=== PATIENT | female | born 2000 | race Caucasian/White ===

== ENCOUNTER 2022-09-07 16:44 | Emergency (ER) | payer OTHER, SELFPAY ==
[2022-09-07 16:54] VITALS: BP 133/69; PULSE 99; RESP 14; TEMP 37; O2SAT 99
[2022-09-07 16:59] VITALS: BP 133/69; PULSE 99; RESP 14; TEMP 37; O2SAT 99
--- NOTE | 2022-09-07 17:15 | ED.GENADULT ---
HPI - General Adult General Chief complaint: Ear Stated complaint: Right Ear Pain Source: patient Mode of arrival: ambulatory Limitations: no limitations History of Present Illness HPI narrative: Patient presents for evaluation of right ear pain for last 4 days. She states symptoms started after she stuck a Q-tip in her right ear. She developed a sensation that she has fluid in her ear. She denies confirmation of any drainage from the right ear. She states she has intermittent muffled hearing on right. Has any fever, chills, nausea, vomiting, sore throat, respiratory symptoms. She has been taking Tylenol and ibuprofen for symptoms. Related Data Allergies Allergy/AdvReac Type Severity Reaction Status Date / Time No Known Allergies Allergy Verified 09/07/22 16:59 Review of Systems Review of Systems: CONSTITUTIONAL: Denies fever, chills, or sweats. EYES: Denies visual changes, redness, or discharge. ENT: Reports right ear pain, sensation of fluid in the ear, and intermittent muffled hearing CARDIOVASCULAR: Denies chest pain, palpitations, or edema. RESPIRATORY: Denies cough or dyspnea. GASTROINTESTINAL: Denies abdominal pain, nausea, vomiting, or diarrhea. GENITOURINARY: Denies dysuria or hematuria. SKIN: Denies rash or itching. MUSCULOSKELETAL: Denies back pain, joint pain, or myalgia. NEUROLOGIC: Denies headache, numbness, dizziness, or weakness. PSYCHIATRIC: Denies anxiety or depression. [facility] Past Medical History Medical History (Updated 09/07/22 @ 17:17 by Joel Jimenez, GAS CONTRO[employer], ) No pertinent past medical history Surgical History Surgical History No pertinent past surgical history Family History Family History Mother Family history non-contributory Social History Social History Smoking status: Never smoker Substance use: current Substance use type: marijuana Gender identity (if verbalized by the patient): Female Sexual Orientation (if Verbalized by the Patient): Straight or Heterosexual Spiritual care concerns: No Exam Narrative: GENERAL: Well-appearing, well-nourished, and in no acute distress. HEAD: Normocephalic, atraumatic. EYES: PERRLA and EOMI. ENT: Nares clear, no rhinorrhea or epistaxis. Mucous membranes moist. Oropharynx without tonsillar hypertrophy exudate or other lesions. There is white exudate in the right ear canal which is edematous. I am unable to visualize right TM NECK: Supple. No adenopathy or masses. No carotid bruits or JVD CHEST: Clear to auscultation. No respiratory distress. No wheezes rales or rhonchi HEART: Regular rate and rhythm. No murmur heard. Normal peripheral pulses. ABDOMEN: Soft, nontender, nondistended, normal active bowel sounds. EXTREMITIES: Normal range of motion. No edema. SKIN: Warm, dry, no rash. NEURO: No focal deficits. Alert and oriented x3. PSYCH: Normal mood and affect. Course Course Emergency Course: This is a 22-year-old female who presented for evaluation of right ear pain for last 4 days. She does have evidence of otitis externa. I am not sure she has perforated her tympanic membrane as I am unable to visualize 2/2 swelling. I did irrigate with H202 and water. Will also cover with augmentin. Follow up with ENT. Go to ER for worsening symptoms. Pt in agreement with plan of care. Level of Care: Express Care Visit Vital Signs Vital signs: Vital Signs Temperature 37.0 C 09/07/22 16:54 Pulse Rate 99 09/07/22 16:54 Respiratory Rate 14 09/07/22 16:54 Blood Pressure 133/69 09/07/22 16:54 Pulse Oximetry 99 09/07/22 16:54 Oxygen Delivery Room Air 09/07/22 16:54 Temperature 37.0 C 09/07/22 16:59 Pulse Rate 99 09/07/22 16:59 Respiratory Rate 14 09/07/22 16:59 Blood Pressure 133/69 09/07/22 16:59 Pulse Oximetry 9
== END 2022-09-07 17:16 | disposition home or self-care (01) ==
PROVIDERS: Emergency Provider Nurse Practitioner
DX: S09.91XA Unspecified injury of ear, initial encounter (principal); X58.XXXA Exposure to other specified factors, initial encounter
CPT/HCPCS: 99213; G0463

== ENCOUNTER 2023-03-01 15:23 | Emergency (ER) | payer OTHER, SELFPAY ==
[2023-03-01 15:35] VITALS: BP 119/71; PULSE 96; RESP 20; TEMP 36.7; O2SAT 97
--- NOTE | 2023-03-01 16:09 | ED.GENADULT ---
HPI - General Adult General Chief complaint: Urogenital-Female Stated complaint: Poss UTI Source: patient Mode of arrival: ambulatory Limitations: no limitations History of Present Illness HPI narrative: Patient presents for evaluation of urinary symptoms for last few days. Symptoms include urine hesitancy, urgency, frequency, incomplete emptying, and discomfort at the end of urinary stream. She denies any fever chills, nausea, vomiting, low back pain, abdominal pain. Last menstrual period now. No vaginal discharge. Related Data Allergies Allergy/AdvReac Type Severity Reaction Status Date / Time No Known Allergies Allergy Verified 03/01/23 15:49 Review of Systems Review of Systems: CONSTITUTIONAL: Denies fever, chills, or sweats. EYES: Denies visual changes, redness, or discharge. ENT: Denies rhinorrhea, congestion, sore throat, or otalgia. CARDIOVASCULAR: Denies chest pain, palpitations, or edema. RESPIRATORY: Denies cough or dyspnea. GASTROINTESTINAL: Denies abdominal pain, nausea, vomiting, or diarrhea. GENITOURINARY:Reports urinary frequency, urgency, hesitancy, incomplete emptying, discomfort at the end of urinary stream. Denies vaginal discharge SKIN: Denies rash or itching. MUSCULOSKELETAL: Denies back pain, joint pain, or myalgia. NEUROLOGIC: Denies headache, numbness, dizziness, or weakness. PSYCHIATRIC: Denies anxiety or depression. PMFSH Past Medical History Medical History No pertinent past medical history Surgical History Surgical History No pertinent past surgical history Family History Family History Mother Family history non-contributory Social History Social History Smoking status: Never smoker Substance use: current Substance use type: marijuana Gender identity (if verbalized by the patient): Female Sexual Orientation (if Verbalized by the Patient): Straight or Heterosexual Spiritual care concerns: No Exam Narrative: GENERAL: Well-appearing, well-nourished, and in no acute distress. HEAD: Normocephalic, atraumatic. EYES: PERRLA and EOMI. ENT: Nares clear, no rhinorrhea or epistaxis. Mucous membranes moist. Oropharynx without tonsillar hypertrophy exudate or other lesions. Bilateral TMs pearly rocha nonbulging NECK: Supple. No adenopathy or masses. No carotid bruits or JVD CHEST: Clear to auscultation. No respiratory distress. No wheezes rales or rhonchi HEART: Regular rate and rhythm. No murmur heard. Normal peripheral pulses. ABDOMEN: Soft, nontender, nondistended, normal active bowel sounds. EXTREMITIES: Normal range of motion. No edema. SKIN: Warm, dry, no rash. NEURO: No focal deficits. Alert and oriented x3. PSYCH: Normal mood and affect. Course Course Emergency Course: This is a 22-year-old female who presented for evaluation of urinary symptoms. Urine today positive for leukocyte esterase. Send urine for culture and sensitivity. Start Macrobid. Increase hydration. Declined script for Pyridium. Follow up with primary provider. Go to the ER for worsening symptoms. Patient in agreement plan of care. Level of Care: Express Care Visit Vital Signs Vital signs: Vital Signs Temperature 36.7 C 03/01/23 15:35 Pulse Rate 96 03/01/23 15:35 Respiratory Rate 20 03/01/23 15:35 Blood Pressure 119/71 03/01/23 15:35 Pulse Oximetry 97 03/01/23 15:35 Oxygen Delivery Room Air 03/01/23 15:35 Temperature 36.7 C 03/01/23 15:35 Pulse Rate 96 03/01/23 15:35 Respiratory Rate 20 03/01/23 15:35 Blood Pressure 119/71 03/01/23 15:35 Pulse Oximetry 97 03/01/23 15:35 Oxygen Delivery Room Air 03/01/23 15:35 Medical Decision Making Vital Signs Vital Signs: Vital Signs Temperatur
== END 2023-03-01 16:15 | disposition home or self-care (01) ==
PROVIDERS: Emergency Provider Nurse Practitioner
DX: N39.0 Urinary tract infection, site not specified (principal)
CPT/HCPCS: 81003; 87077; 87086; 87186; 99213; G0463

== ENCOUNTER 2024-02-09 15:35 | Emergency (ER) | payer OTHER, SELFPAY ==
[2024-02-09 16:08] VITALS: BP 138/80; PULSE 104; RESP 18; TEMP 36.8; O2SAT 100
--- NOTE | 2024-02-09 17:17 | ED.FEMALEGU ---
HPI - Female Genitourinary General Chief complaint: Urogenital-Female Stated complaint: UTI Time Seen by Provider: 02/09/24 17:00 Source: patient, RN notes reviewed and old records reviewed Mode of arrival: ambulatory Limitations: no limitations History of Present Illness HPI Narrative: 23 year old female presents to [facility] care with complaints of burning with urination yesterday none today but is having soreness in the lower abdomen, and lower back, frequency and urgency with urination today. Patient reports that she also has no fevers, chills or any sweats, denies any nausea or vomiting. Patient reports no concern for STD's. MD elicited complaint: UTI Onset (ago): day(s) (day 2 of symptoms) Location of symptoms: suprapubic and low back Severity scale (1-10): 5 Quality of pain: aching Vaginal discharge: none Vaginal bleeding: none Treatment prior to arrival: none Related Data Allergies Allergy/AdvReac Type Severity Reaction Status Date / Time No Known Allergies Allergy Verified 03/01/23 15:49 Review of Systems Review of Systems: CONSTITUTIONAL: Denies fever, chills, or sweats. CARDIOVASCULAR: Denies chest pain, palpitations, or edema. RESPIRATORY: Denies cough or dyspnea. GASTROINTESTINAL:Reports suprapubic abdominal pain, nausea, vomiting, or diarrhea. GENITOURINARY: Reports dysuria, frequency, urgency. Denies flank pain or hematuria. SKIN: Denies rash or itching. MUSCULOSKELETAL: Reports low back pain or myalgia. Denies CVA tenderness NEUROLOGIC: Denies headache All systems reviewed & are unremarkable except as noted in HPI and below PMFSH Past Medical History Medical History No pertinent past medical history Surgical History Surgical History No pertinent past surgical history Family History Family History Mother Family history non-contributory Social History Social History Smoking status: Never smoker Substance use: current Substance use type: marijuana Gender identity (if verbalized by the patient): Female Sexual Orientation (if Verbalized by the Patient): Straight or Heterosexual Spiritual care concerns: No Comments At time of signature, agree with nursing past medical, surgical, social and family history. There is no relevant family history pertinent to the presenting complaint Exam Narrative: GENERAL: Well-appearing, well-nourished, and in no acute distress. HEAD: Normocephalic, atraumatic. NECK: Supple. no lymphadenopathy CHEST: Clear to auscultation. No respiratory distress.SAO2 100% on room air HEART: Regular rate and rhythm. No murmur heard. Normal peripheral pulses. ABDOMEN: Soft, suprapubic tender, nondistended, normal active bowel sounds. No CVA tenderness, reports low back pain, frequency,urgency with urination reported. EXTREMITIES: Normal range of motion. No edema. SKIN: Warm, dry, no rash. NEURO: No focal deficits. Alert and oriented x3. Course Course Emergency Course: Patient is aware of diagnosis, understands and agrees to treatment plan.? Anticipatory guidance given.? Patient agrees to follow-up as directed and is aware of reasons to seek care at the emergency department. Portions of this record may have been created with voice recognition software Level of Care: Express Care Visit Vital Signs Vital signs: Vital Signs Temperature 36.8 C 02/09/24 16:08 Pulse Rate 104 H 02/09/24 16:08 Respiratory Rate 18 02/09/24 16:08 Blood Pressure 138/80 02/09/24 16:08 Pulse Oximetry 100 02/09/24 16:08 Oxygen Delivery Room Air 02/09/24 16:08 Temperature 36.8 C 02/09/24 16:08 Pulse Rate 104 H 02/09/24 16:08 Respiratory Rate 18 02/09/24 16:08 Blood Pressure 138/80 02/09/24 16:08 Pulse Oximetry 100 02/09/24 16:
[2024-02-09 17:32] LABS: EDUAAPPEAR Clear; EDUABILI Negative (Negative); EDUABLOOD Negative (Negative); EDUACOLOR1 Yellow; EDUAGLUCOSE Negative (Negative); EDUAKETONE Negative (Negative); EDUALEUKO Negative (Negative); EDUANITRATE Negative (Negative); EDUAPH 8.5; EDUAPROTEIN 1+ (Negative); EDUASPGRAVITY 1.025
== END 2024-02-09 17:49 | disposition home or self-care (01) ==
PROVIDERS: Emergency Provider Registered Nurse
DX: R35.0 Frequency of micturition (principal); R10.30 Lower abdominal pain, unspecified; M54.50 Low back pain, unspecified; R39.15 Urgency of urination; F12.90 Cannabis use, unspecified, uncomplicated
CPT/HCPCS: 81003; 87086; 87088; 99213; G0463

== ENCOUNTER 2024-08-24 16:07 | Emergency (ER) | payer OTHER, SELFPAY ==
[2024-08-24 16:14] VITALS: BP 132/80; PULSE 120; RESP 16; TEMP 37.1; O2SAT 98
--- NOTE | 2024-08-24 16:30 | ED.FEMALEGU ---
HPI - Female Genitourinary General Chief complaint: Urogenital-Female Stated complaint: urinary irritation Source: patient and RN notes reviewed Mode of arrival: ambulatory Limitations: no limitations History of Present Illness HPI Narrative: 23-year-old female presented for complaint of burning with urination, frequency and incomplete bladder emptying sensation. Onset yesterday. Endorses blood in urine today. Denies nausea, vomiting, abdominal pain, flank pain, constipation, diarrhea, fevers or chills. Denies concerns STD or . LMP last week. Related Data Home Medications ?Medication ?Instructions ?Recorded ?Confirmed ?Last Taken ?Type drospirenone 3 mg-ethinyl tablet 08/24/24 Unknown History estradiol 0.02 mg tablet Allergies Allergy/AdvReac Type Severity Reaction Status Date / Time No Known Allergies Allergy Verified 08/24/24 16:09 Review of Systems Review of Systems: CONSTITUTIONAL: Denies body aches, fever, chills, or sweats. CARDIOVASCULAR: Denies chest pain, palpitations, or edema. RESPIRATORY: Denies cough or dyspnea. GASTROINTESTINAL: Denies abdominal pain, nausea, vomiting, or diarrhea. GENITOURINARY: Reports dysuria, frequency, hematuria, denies flank pain SKIN: Denies rash, itching, or wounds. MUSCULOSKELETAL: Denies back pain or myalgia. [facility] Past Medical History Medical History No pertinent past medical history Surgical History Surgical History No pertinent past surgical history Family History Family History Mother Family history non-contributory Social History Social History Smoking status: Never smoker Substance use: current Substance use type: marijuana Gender identity (if verbalized by the patient): Female Sexual Orientation (if Verbalized by the Patient): Straight or Heterosexual Spiritual care concerns: No Comments At time of signature, I have reviewed and agree with nursing past medical, surgical, social and family history unless otherwise noted. Please see nursing chart for further information. There is no relevant family history pertinent to the presenting complaint Exam Narrative: GENERAL: Well-appearing and in no acute distress. ENT: Mucous membranes pink and moist. NECK: Normal AROM. Supple. CHEST: No respiratory distress. Clear to auscultation. HEART: Regular rate and rhythm. ABDOMEN: Soft, nontender, nondistended, normal active bowel sounds. No CVA tenderness SKIN: Warm, dry, no rash. NEURO: No focal deficits. Alert and oriented x3. Gait steady. PSYCH: Normal affect. Course Course Emergency Course: Patient is aware of diagnosis, understands and agrees to treatment plan. Anticipatory guidance given. Patient agrees to follow-up as directed and is aware of reasons to seek care at the emergency department. Portions of this record may have been created with voice recognition software Level of Care: Express Care Visit Vital Signs Vital signs: Vital Signs Temperature 98.8 F 08/24/24 16:14 Pulse Rate 120 H 08/24/24 16:14 Respiratory Rate 16 08/24/24 16:14 Blood Pressure 132/80 08/24/24 16:14 Pulse Oximetry 98 08/24/24 16:14 Oxygen Delivery Room Air 08/24/24 16:14 Temperature 98.8 F 08/24/24 16:14 Pulse Rate 120 H 08/24/24 16:14 Respiratory Rate 16 08/24/24 16:14 Blood Pressure 132/80 08/24/24 16:14 Pulse Oximetry 98 08/24/24 16:14 Oxygen Delivery Room Air 08/24/24 16:14 Reviewed MDM - Female Genitourinary MDM Narrative Medical decision making narrative: Discussed physical exam findings and urine dip. Advised supportive measures and signs/symptoms to go to the ER. Pt is appropriate for outpt treatment and f/u. Differential Diagnosis Differential diagnosis: Likely urinary tract infection and cystitis Discharge Plan Discharge Clinical Impression: Urinary tract infection Patient Disposition: Home, Self-Care Condition: Stable Instructions: Antibiotic Form, Urinary Tract Infection in Women (ED) Additional Instructions: Take the antibiotic as prescribed The urine will be sent of for a culture to identify what type of bacteria is causing your infection. If the culture shows that the antibiotic will not get rid of your infection, you will be notified and a new antibiotic will be called in for you. Increase water intake you will need to follow up with your PCP, call to schedule an appointment. Go to the ER for any worsening symptoms or concerns Patient Language: Beninese Prescriptions: New nitrofurantoin monohyd/m-cryst [Macrobid] 100 mg capsule 100 mg PO Q12H 5 Days Qty: 10 0RF Rx Instructions: must administer with a meal/food No Action drospirenone-ethinyl estradiol 3-0.02 mg tablet Follow-up/Referrals: PHYSICIAN,BED LASTER [Primary Care Provider] - Time of Disposition: 16:36
[2024-08-24 16:43] LABS: EDUAAPPEAR Clear; EDUABILI Negative (Negative); EDUABLOOD 1+ (Negative); EDUACOLOR1 Yellow; EDUAGLUCOSE Negative (Negative); EDUAKETONE Negative (Negative); EDUALEUKO 1+ (Negative); EDUANITRATE Negative (Negative); EDUAPH 6.5; EDUAPROTEIN Negative (Negative); EDUAUROBILI 0.2
--- OUTSIDE RECORDS SUMMARY | 2024-08-24 16:43 | XMS_ITS | Referral Summary ---
Author Organization [facility] [address] Address [address] [place] [address] Phone Care Team Providers Care Ceramic Artist Name Role Phone Prema George MD Primary Care Provider [phone] Allergies No known active allergies Medications ciprofloxacin (CIPRO) 500 mg tabletIndication s:Urinary Tract/Genitourin elsa Infection Take 1 tablet (500 mg total) by mouth 2 (two) times a day 14 tablet 01/26/2023 Active Active Problems Problem Noted Date Diagnosed Date Lipoma 07/22/2016 Overview (04/13/2017): 07-22-16 R lower rib cage #10, 2 cm Ingrown toenail 07/22/2016 Overview (04/13/2017): Bilateral; reports seeing Podiatry 07-22-16 Anxiety 07/22/2016 Overview (04/13/2017): 17 reports anxiety attacks for years - urged to call [facility] 01/23/2015 Overview (04/13/2017): Health care maintenance 02/28/2014 Overview (04/13/2017): Overweight 02/28/2014 Overview (04/13/2017): Resolved Problems Problem Noted Date Diagnosed Date Resolved Date Otitis media 04/30/2015 04/13/2017 Overview (08/29/2016): Otitis media Excessive shyness 02/28/2014 04/13/2017 Overview (04/13/2017): Immunizations Immunization Administration Dates Next Due DTaP 02/17/2005,03/09/2001,01/08/2001 ,2000 DTaP / HiB 12/08/2001 HPV, Quadrivalent 01/23/2015 HPV9 01/19/2018 Hep B / HiB 03/09/2001 Hep B, Adolescent or Pediatric 2000,2000 Hib (PRP-T) 01/08/2001,2000 IPV 02/17/2005,12/08/2001,01/08/2001 ,2000 MMR 02/17/2005,09/08/2001 Meningococcal MCV4P (Menactra) 01/19/2018,2011 Pneumococcal Conjugate 7-Valent 12/08/2001,03/23,01/08/2001,2000 Tdap 01/12/2012 Varicella 01/23/2015,09/08/2001 Social History Tobacco Use Types Packs/Day Years Used Date Smoking Tobacco: Never Assessed Personal Safety Answer Date Recorded Have you ever been in or are you currently in a harmful physical or emotional relationship or is someone making you feel afraid or unsafe? 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 ID Care Teams Ceramic Artist Relationship Specialty Start Date End Date Prema George MD [address] [place] [address] PCP - General 08/22/16
--- OUTSIDE RECORDS SUMMARY | 2024-08-24 16:43 | XMS_ITS | Clinical Summary ---
Author Organization [facility] [address] Address [address] [place] [address] Phone Care Team Providers Care Acid Crane Operator Name Role Phone Prema George MD Primary Care Provider [phone] Allergies No known active allergies Medications ciprofloxacin [...] attacks for years - urged to call [facility] 01/23/2015 Overview (04/13/2017): Health care maintenance 02/28/2014 [...] Conjugate 7-Valent 12/08/2001,03/23,01/08/2001,2000 Tdap 01/12/2012 Varicella 01/23/2015,09/08/2001 Medical History Medical History Date Comments 2000 6-6 product nl p reg O+/O+ Family History Medical History Relation Name Comments Hyperlipidemia Other 1 Diabetes Other 2 Sudden Other 3 Age 46 [place] Asthma Sister 1/2 sister Relation Name Status Comments Other 1 Other 2 Other 3 Sister 1/2 sister Social History Tobacco Use Types Packs/Day Years [...] on file Legal Sex Female 3:11 PM [employer] Gender Identity Not on file Sexual Orientation Not on file Obstetrics History Last Filed Vital Signs Vital Sign Reading [...] Mass Index - - Plan of Treatment Health Maintenance Due Date Last Done Comments Cervical Cancer Screening 2000 Depression Screening 2000 Hepatitis C Screening 2000 Meningococcal B Vaccine (1 o f 2 - Standard) 2016 Regular Well Visit/Exam 18-64 2018 DTaP/Tdap/Td Vaccine (7 - Td or Tdap) 01/11/2022 01/12/2012, 02/17/2005, 12/08/2001, Additional history exists Covid-19 Vaccine (2 - 2023-2 5 season) 2024 05/13/2021 Influenza Vaccine (#1) 2024 Hepatitis B Screening Completed 03/09/2001 , 2000, 2000 Pneumococcal vaccine <65 Completed 002, 03/23/2001, 01/08/2001, Additional history exists Varicella Vaccines Completed 01/23/2015, 09/08/2001 HPV Vaccines Completed 01/19/2018, 01/23/[address] [place] [address] [facility] Care Teams Acid Crane Operator Relationship Specialty Start Date End Date Prema George MD [address] [place] [address] PCP - General 08/22/16
--- OUTSIDE RECORDS SUMMARY | 2024-08-24 16:43 | XMS_ITS | Data Portability ---
Author Organization [facility] Address [address] [place] [address] Assessment Encounter Date Assessment Date Assessment LastModified by Organization Details LastModified Time 09/23/2021 09/23/2021 Annual gynecological exam performed. Patient will come back in a year unless there are new symptoms. Not available 09/20/2021 11:52:13 Plan of Treatment Reminders Order Date Submit Date Provider Last Modified By Organization Details Last Modified Time Details Appointments None recorded . Lab hbcab (hepatit is B core Ab) igm, serum 2022 023 [facility] (Lab), [address], [place], [address], 21:46:09 HBsAg (hepatit is B surface Ag), serum 2022 023 [facility] (Lab), [address], [place], [address], 21:46:07 hepatiti s C virus Ab, serum 2022 023 [facility] (Lab), [address], [place], [address], 3 21:46:08 unlisted lab - HIV 1/2 antigen/ antibody , reflex confirma tion 2022 023 [facility] (Lab), [address], [place], [address], 21:46:08 RPR (rapid plasma reagin), serum 2022 023 [facility] (Lab), [address], [place], [address], 3 21:46:09 urinalys is, dipstick 2022 023 [place], [address], [address], [place], [address], 12:44:11 CBC w/ auto diff 2022 023 [facility] (Lab), [address], [place], [address], 3 10:38:56 TSH, serum or plasma 2022 023 [facility] (Lab), [address], [place], [address], 3 10:38:58 CMP, serum or plasma 2022 023 [facility] (Lab), [address], [place], [address], 3 10:38:58 HbA1c (hemoglo bin A1c), blood 2022 023 [facility] (Lab), [address], [place], [address], 3 10:38:57 lipid panel, blood 2022 023 [facility] (Lab), [address], [place], [address], 3 10:38:57 Referral None recorded . Procedures None recorded . Surgeries None recorded . Imaging None recorded . Medication Orders penicill in G benzathi ne 2,400,00 0 unit/4 mL intramus cular syringe 2022 023 [facility][id number], [address], [place], [place], [id number], 3 14:20:52 Macrobid 100 mg capsule 2022 023 [facility] #[id number], [address], [place], [place], [id number], 3 14:10:09 fluconaz ole 150 mg tablet 2021 022 [facility] #[id number], [address], [place], [place], [id number], 3 14:10:05 nystatin -triamci nolone 100,000 unit/gra m-0.1 % topical ointment 2021 022 [facility] #[id number], [address], [place], [place], [id number], 2 14:25:40 Patient TargetsNo targets recorded. Patient InstructionsNo instructions recorded. Reason for Referral None Reported. Results Created Date Observation Date Name Description Value Unit Range Abnormal Flag Note LastModifiedBy Organization Detail LastModifiedTime 09/10/19 22 09/09/2021 VAGIN ITIS/ VAGIN OSIS, DNA PROBE aleyda sp. detection, direct probe Negati ve negati ve Not Available [facility] (Lab) [address], [place], [address], 09/10/2021 14:14:19 09/10/19 22 09/09/2021 VAGIN ITIS/ VAGIN OSIS, DNA PROBE gardnerella vag. detection, direct probe Positi ve negati ve abnormal Not Available [facility] (Lab) [address] [place], [address], 09/10/2021 14:14:19 09/10/19 22 09/09/2021 VAGIN ITIS/ VAGIN OSIS, DNA PROBE trichomonas vag. detection, direct probe Negati ve negati ve Not Available [facility] (Lab) [address], [place], [address], 09/10/2021 14:14:19 09/10/19 22 09/09/2021 CT/GC AND TRICH OMONA S VAGIN SOHAN (RRNA ), URINE chlamydia trachomatis, PCR Negati ve negati ve Not Available [facility] (Lab) [address], [place], [address], 09/10/2021 14:14:20 09/10/19 22 09/09/2021 CT/GC AND TRICH OMONA S VAGIN SOHAN (RRNA ), URINE neisseria gonorrhoeae, PCR Negati ve negati ve Not Available [facility] (Lab) [address] [facility] [address], [place], [address], 09/10/2021 14:14:20 09/10/19 22 09/09/2021 CT/GC AND TRICH OMONA S VAGIN SOHAN (RRNA ), URINE trichomonas vaginalis ribosomal RNA (rrna) Negati ve negati ve Not Available [facility] (Lab) [address], [place], [address], 09/10/2021 14:14:20 09/24/19 22 09/23/2021 IMAGE GUIDE D PAP, REFLE X HPV IF ASCUS ONLY image guided Pap, reflex HPV ASCUS only SEE RESULT S BELOW CASE REPOR T: Cytol ogy Gynec ologi tylor Repor t Case: [id number] Autho ricelena g Provi js: Heather Walsh, DAO Colle cted: 09/23 1632 Order ing Locat ion: [place] [facility] Recei ivan: 09/24 0754 First Scree n: Clay Castro, CT Speci men: Scree nikolai Pap - Image d, Cervi x STATE MENT OF ADEQU ACY: Satis facto ry for evalu ation Trans forma tion zone compo nent prese nt FINAL DIAGN OSIS: Negat eliseo for Intra epith elial Lesio n or Temo middleton (NIL) . Elect padminibetzaida reyes cali d by Clay Castro, CT on 022 at 10:19 AM ----- ----- ----- ----- ----- ----- ----- ----- ----- ----- ----- ----- ----- ----- ----- ----- ----- ---- COMME NT: Note: This speci men was revie wed by a Cytot echno logis t and/o r Patho logis t (as indic ated in this repor t) after evalu ation using the Thinp rep Imagi ng Syste m. CLINI TYLOR INFOR MATIO N: Menst rual Statu s: LMP (if appli cable ): Clini tylor Histo ry/Pr eviou s Pap: Type of Neopl elvira (if appli cable ): Signi fican t Clini tylor Findi ngs: Other Histo ry: Hormo susan (if appli cable ): PAP EDUCA COREY L NOTE: The Pap Test is a scree nikolai test with an inher ent false negat eliseo rate. Liqui d-bas ed sampl ing may decre ase, but will not elimi lizz, false negat eliseo resul ts. A negat eliseo resul t does not precl ude the prese nce and/o r devel opmen t of disea se, since the prese nce of abnor mal cells in the sampl e depen ds on the locat ion of the lesio n and sampl ing techn ique. Shade nued regul ar scree nikolai is the best metho d of cance r preve ntion . If repor geraldine cytol ogic findi ng do not corre late with physi tylor and/o r histo rical findi ngs, furth er inves tigat ion is recom jerod d, as clini lydia valentine nted. Not Available [facility] (Lab) [address], [place], [address], 09/30/2021 11:21:26 09/24/19 22 09/23/2021 TRICH OMONA S VAGIN SOHAN (RRNA ) trichomonas vaginalis ribosomal RNA (rrna) Negati ve negati ve Not Available [facility] (Lab) [address] , [place], [address], 09/30/2021 11:21:27 09/24/19 22 09/23/2021 CT/GC (JOSH) , THINP REP VIAL chlamydia trachomatis, PCR Negati ve negati ve Not Available [facility] (Lab) [address] [facility] [address], [place], [address], 09/30/2021 11:21:27 09/24/19 22 09/23/2021 CT/GC (JOSH) , THINP REP VIAL neisseria gonorrhoeae, PCR Negati ve negati ve Not Available [facility] (Lab) [address], [place], [address], 09/30/2021 11:21:27 12/13/19 23 12/12/2022 CBC W/DIF F WBC 12.9 10'3/ uL 3.6-10 .2 high Not Available [facility] (Lab) [address], [place], [address], 12/13/2022 10:38:56 12/13/19 23 12/12/2022 CBC W/DIF F RBC 4.79 10'6/ uL (based on docume nted legal sex) 4.10-5 .30 Not Available [facility] (Lab) [address], [place], [address], 12/13/2022 10:38:56 12/13/19 23 12/12/2022 CBC W/DIF F HGB 13.6 g/dL (based on docume nted legal sex) 11.9-1 5.8 Not Available [facility] (Lab) [address], [place], [address], 12/13/2022 10:38:56 12/13/19 23 12/12/2022 CBC W/DIF F HCT 44.5 % (based on docume nted legal sex) 37.4-4 8.3 Not Available [facility] (Lab) [address], [place], [address], 12/13/2022 10:38:56 12/13/19 23 12/12/2022 CBC W/DIF F MCV 92.9 fL 82.0-9 9.0 Not Available [facility] (Lab) [address], [place], [address], 12/13/2022 10:38:56 12/13/19 23 12/12/2022 CBC W/DIF F MCH 28.4 pg 27.0-3 3.0 Not Available [facility] (Lab) [address], [place], [address], 12/13/2022 10:38:56 12/13/19 23 12/12/2022 CBC W/DIF F MCHC 30.6 g/dL 32.0-3 6.0 low Not Available [facility] (Lab) [address], [place], [address], 12/13/2022 10:38:56 12/13/19 23 12/12/2022 CBC W/DIF F RDW 13.8 % 11.0-1 5.0 Not Available [facility] (Lab) [address], [place], [address], 12/13/2022 10:38:56 12/13/19 23 12/12/2022 CBC W/DIF F plt 374 10'3/ uL 150-45 0 Not Available [facility] (Lab) [address], [place], [address], 12/13/2022 10:38:56 12/13/19 23 12/12/2022 CBC W/DIF F MPV 10.8 fL 9.8-12 .7 Not Available [facility] (Lab) [address], [place], [address], 12/13/2022 10:38:56 12/13/19 23 12/12/2022 CBC W/DIF F NRBC's 0.0 % 0 Not Available [facility] (Lab) [address], [place], [address], 12/13/2022 10:38:56 12/13/19 23 12/12/2022 CBC W/DIF F absolute NRBCs 0.0 10'3/ uL 0 Not Available [facility] (Lab) [address], [place], [address], 12/13/2022 10:38:56 12/13/19 23 12/12/2022 CBC W/DIF F neutrophils 78.3 % 37.0-7 2.0 high Not Available [facility] (Lab) [address], [place], [address], 12/13/2022 10:38:56 12/13/19 23 12/12/2022 CBC W/DIF F lymphocytes 15.2 % 16.0-4 8.0 low Not Available [facility] (Lab) [address], [place], [address], 12/13/2022 10:38:56 12/13/19 23 12/12/2022 CBC W/DIF F monocytes 5.0 % 4.0-14 .0 Not Available [facility] (Lab) [address], [place], [address], 12/13/2022 10:38:56 12/13/19 23 12/12/2022 CBC W/DIF F eosinophils 0.6 % 0.0-9. 0 Not Available [facility] (Lab) [address], [place], [address], 12/13/2022 10:38:56 12/13/19 23 12/12/2022 CBC W/DIF F basophils 0.5 % 0.0-2. 0 Not Available [facility] (Lab) [address], [place], [address], 12/13/2022 10:38:56 12/13/19 23 12/12/2022 CBC W/DIF F immature granulocytes 0.4 % no define d refere nce range Not Available [facility] (Lab) [address] , [place], [address], 12/13/2022 10:38:56 12/13/19 23 12/12/2022 CBC W/DIF F absolute neutrophils 10.1 10'3/ uL 1.1-6. 0 high Not Available [facility] (Lab) [address], [place], [address], 12/13/2022 10:38:56 12/13/19 23 12/12/2022 CBC W/DIF F absolute lymphocytes 2.0 10'3/ uL 0.7-3. 4 Not Available [facility] (Lab) [address], [place], [address], 12/13/2022 10:38:56 12/13/19 23 12/12/2022 CBC W/DIF F absolute monocytes 0.6 10'3/ uL 0.3-1. 0 Not Available [facility] (Lab) [address], [place], [address], 12/13/2022 10:38:56 12/13/19 23 12/12/2022 CBC W/DIF F absolute eosinophils 0.1 10'3/ uL 0.0-0. 6 Not Available [facility] (Lab) [address], [place], [address], 12/13/2022 10:38:56 12/13/19 23 12/12/2022 CBC W/DIF F absolute basophils 0.1 10'3/ uL 0.0-0. 1 Not Available [facility] (Lab) [address], [place], [address], 12/13/2022 10:38:56 12/13/19 23 12/12/2022 CBC W/DIF F absolute immature granulocytes 0.1 10'3/ uL 0.00-0 .10 2022 5:35 AM: P indic ates parti al resul ts on a panel have been relea sed. Addit ional resul ts will follo w. 2022 5:35 AM: This resul t has been final verif ied. No addit ional or gibbs ed resul ts are expec geraldine. Not Available [facility] (Lab) [address] , [place], [address], 12/13/2022 10:38:56 12/13/19 23 12/12/2022 HEMOG LOBIN A1C hemoglobin A1C 5.5 % 0-5.6 The Ameri can Diabe myron Assoc iatio n recom mends that a prima ry goal of thera py shoul d be a HBA1C of < 7% and that physi cians shoul d reeva luate the treat ment regim en in patie nts with HBA1C value s consi stent ly > 8%. <5.7% Kenna l 5.7 - 6.4% Incre ased risk for diabe myron >=6.5 % Diagn ostic of diabe myron <7.0% Goal of thera py >8.0% Actio n sugge sted Not Available [facility] (Lab) [address] , [place], [address], 12/13/2022 10:38:57 12/13/19 23 12/12/2022 LIPID PANEL ,AMA (LDL- CALC) total cholesterol 155 mg/dL 0-199 Not Available [facility] (Lab) [address] [place], [address], 12/13/2022 10:38:57 12/13/19 23 12/12/2022 LIPID PANEL ,AMA (LDL- CALC) triglyceride s 84 mg/dL 0.00-1 50.00 NCEP Refer ence Value s for Trigl yceri suresh: Kenna l: <150 mg/dL Borde rline High: 150 - 199 mg/dL High: 200 - 499 mg/dL Very High: >/= 500 mg/dL Not Available [facility] (Lab) [address] [place], [address], 12/13/2022 10:38:57 12/13/19 23 12/12/2022 LIPID PANEL ,AMA (LDL- CALC) HDL cholesterol 43 mg/dL >40 Not Available [facility] (Lab) [address], [place], [address], 12/13/2022 10:38:57 12/13/19 23 12/12/2022 LIPID PANEL ,AMA (LDL- CALC) LDL cholesterol 95 mg/dL 0-99 Cutof f value s recom jerod d by the Natio nal Stefania stero l Educa tion Progr am: ROCK ABLE: Stefania stero l <200 mg/dL LDL <100 mg/dL BORDE RLINE : Stefania stero l 200-2 39 mg/dL LDL 101-1 59 mg/dL HIGHE R RISK: Stefania stero l >240 mg/dL LDL >160 mg/dL , HDL <40 mg/dL Not Available [facility] (Lab) [address], [place], [address], 12/13/2022 10:38:57 12/13/19 23 12/12/2022 LIPID PANEL ,AMA (LDL- CALC) non-HDL cholesterol 112 mg/dL no refere nce range A reaso nable goal for non-H DL stefania stero l is one that is 30 mg/dL highe r than the LDL stefania stero l goal. Not Available [facility] (Lab) [address], [place], [address], 12/13/2022 10:38:57 12/13/19 23 12/12/2022 LIPID PANEL ,AMA (LDL- CALC) chol/HDL ratio 3.6 . 0.0-5. 0 On September 16, 2022, [facility] labor mars gibbs ed the equat ion for calcu latin g estim ated low-d ensit y lipop rotei n-cho leste rol (LDL- C) from the Flakito casey equat ion to the Tova diaz/Andres crawford equat ion. This new equat ion is only valid for lipid panel s with trigl yceri suresh < 400 mg/dL . Studi es have demon strat ed that this new equat ion will impro ve the accur acy of LDL-C , espec ially in scena carvalho when LDL-C osiel ntrat ions are relat ively low (< 100 mg/dL ), trigl yceri suresh are eleva geraldine, or patie nt is non-f astin g. Refer ences : - Tova diaz, Rogers Molina, Diego Ely , Baldev ruano, Leon Davidson, Leon brooks, Hollis Wilder. Júnior george , and Donnell De Guzman . 2013. Comp ariso n of a Novel Metho d vs the Fried jacinto Equat ion for Estim ating Low-D ensit y Lipop rotei n Stefania stero l Level s from the Stand milton Lipid Profi le. ELIZ: The Journ al of the Ameri can Medic al Assoc iatio n 310 (19): 2060- . - Chele barry V, Rosalinda J, Tayo ar A, Anne M, Yeny e R, Becca barry E, Júnior george RS, Gab SR, Tova diaz SS. Fast ing Versu s Nonfa sting and Low-D ensit y Lipop rotei n Stefania stero l Accur acy. Circu latio n. 2017May 26;137 (1):1 0-19. Not Available [facility] (Lab) [address] , [place], [address], 12/13/2022 10:38:57 12/13/19 23 12/12/2022 CMP(C OMPRE HENSI VE METAB OLIC PANEL ) sodium 138 mmol/ L 133-14 6 Not Available [facility] (Lab) [address], [place], [address], 12/13/2022 10:38:58 12/13/19 23 12/12/2022 CMP(C OMPRE HENSI VE METAB OLIC PANEL ) potassium 4.3 mmol/ L 3.5-5. 1 Not Available [facility] (Lab) [address], [place], [address], 12/13/2022 10:38:58 12/13/19 23 12/12/2022 CMP(C OMPRE HENSI VE METAB OLIC PANEL ) chloride 103 mmol/ L 98-107 Not Available [facility] (Lab) [address], [place], [address], 12/13/2022 10:38:58 12/13/19 23 12/12/2022 CMP(C OMPRE HENSI VE METAB OLIC PANEL ) carbon dioxide 25 mmol/ L 21-31 Not Available [facility] (Lab) [address], [place], [address], 12/13/2022 10:38:58 12/13/19 23 12/12/2022 CMP(C OMPRE HENSI VE METAB OLIC PANEL ) anion gap 10 mmol/ L 4-13 Not Available [facility] (Lab) [address], [place], [address], 12/13/2022 10:38:58 12/13/19 23 12/12/2022 CMP(C OMPRE HENSI VE METAB OLIC PANEL ) blood urea nitrogen 11 mg/dL 7-25 Not Available [facility] (Lab) [address], [place], [address], 12/13/2022 10:38:58 12/13/19 23 12/12/2022 CMP(C OMPRE HENSI VE METAB OLIC PANEL ) creatinine 0.79 mg/dL 0.60-1 .30 Not Available [facility] (Lab) [address], [place], [address], 12/13/2022 10:38:58 12/13/19 23 12/12/2022 CMP(C OMPRE HENSI VE METAB OLIC PANEL ) egfrcr (CKD-epi 2020) >90 mL/mi n/1.7 3_m2 >=60 Not Available [facility] (Lab) [address], [place], [address], 12/13/2022 10:38:58 12/13/19 23 12/12/2022 CMP(C OMPRE HENSI VE METAB OLIC PANEL ) calcium 9.4 mg/dL 8.3-10 .5 Not Available [facility] (Lab) [address] [facility] [address] [facility], [place], [address], 12/13/2022 10:38:58 12/13/19 23 12/12/2022 CMP(C OMPRE HENSI VE METAB OLIC PANEL ) glucose 86 mg/dL 70-100 Not Available [facility] (Lab) [address] [facility] [address], [place], [address], 12/13/2022 10:38:58 12/13/19 23 12/12/2022 CMP(C OMPRE HENSI VE METAB OLIC PANEL ) protein, total 6.9 g/dL 6.4-8. 3 Not Available [facility] (Lab) [address] [facility] [address], [place], [address], 12/13/2022 10:38:58 12/13/19 23 12/12/2022 CMP(C OMPRE HENSI VE METAB OLIC PANEL ) albumin 4.1 g/dL 3.5-5. 0 Not Available [facility] (Lab) [address], [place], [address], 12/13/2022 10:38:58 12/13/19 23 12/12/2022 CMP(C OMPRE HENSI VE METAB OLIC PANEL ) ALT 29 units /L 9-43 Not Available [facility] (Lab) [address], [place], [address], 12/13/2022 10:38:58 12/13/19 23 12/12/2022 CMP(C OMPRE HENSI VE METAB OLIC PANEL ) alkaline phosphatase 68 units /L 34-104 Not Available [facility] (Lab) [address] [facility] [address] [facility], [place], [address], 12/13/2022 10:38:58 12/13/19 23 12/12/2022 CMP(C OMPRE HENSI VE METAB OLIC PANEL ) AST 16 units /L 13-39 Not Available [facility] (Lab) [address] [facility] [address] [facility], [place], [address], 12/13/2022 10:38:58 12/13/19 23 12/12/2022 CMP(C OMPRE HENSI VE METAB OLIC PANEL ) bilirubin, total 0.3 mg/dL 0.2-1. 2 Not Available [facility] (Lab) [address] [facility] [address], [place], [address], 12/13/2022 10:38:58 12/13/19 23 12/12/2022 TSH, REFLE X FREE T4 TSH 1.28 uIU/m L 0.30-5 .33 Not Available [facility] (Lab) [address] [facility] [address], [place], [address], 12/13/2022 10:38:58 12/13/19 23 12/12/2022 URINA LYSIS , WITH MICRO SCOPI C, REFLE X CULTU RE color, urine Brown abnormal Highl y color ed speci mens may inter fere with chemi stry resul ts. Not Available [facility] (Lab) [address], [place], [address], 12/14/2022 14:09:22 12/13/19 23 12/12/2022 URINA LYSIS , WITH MICRO SCOPI C, REFLE X CULTU RE clarity, urine Cloudy abnormal Not Available [facility] (Lab) [address], [place], [address], 12/14/2022 14:09:22 12/13/19 23 12/12/2022 URINA LYSIS , WITH MICRO SCOPI C, REFLE X CULTU RE specific gravity, urine >1.030 . 1.005- 1.035 Not Available [facility] (Lab) [address] [facility], [place], [address], 12/14/2022 14:09:22 12/13/19 23 12/12/2022 URINA LYSIS , WITH MICRO SCOPI C, REFLE X CULTU RE pH, urine 6.0 . 5.0-7. 0 Not Available [facility] (Lab) [address] [facility], [place], [address], 12/14/2022 14:09:22 12/13/19 23 12/12/2022 URINA LYSIS , WITH MICRO SCOPI C, REFLE X CULTU RE protein, UA 100 mg/dL negati ve, 10-20 abnormal Not Available [facility] (Lab) [address] [facility], [place], [address], 12/14/2022 14:09:22 12/13/19 23 12/12/2022 URINA LYSIS , WITH MICRO SCOPI C, REFLE X CULTU RE glucose, urine Normal mg/dL negati ve Not Available [facility] (Lab) [address] [facility], [place], [address], 12/14/2022 14:09:22 12/13/19 23 12/12/2022 URINA LYSIS , WITH MICRO SCOPI C, REFLE X CULTU RE ketones, urine Negati ve mg/dL negati ve Not Available [facility] (Lab) [address] [facility], [place], [address], 12/14/2022 14:09:22 12/13/19 23 12/12/2022 URINA LYSIS , WITH MICRO SCOPI C, REFLE X CULTU RE bilirubin, urine Negati ve negati ve Not Available [facility] (Lab) [address] [facility], [place], [address], 12/14/2022 14:09:22 12/13/19 23 12/12/2022 URINA LYSIS , WITH MICRO SCOPI C, REFLE X CULTU RE blood, urine 3+ negati ve abnormal Not Available [facility] (Lab) [address] [place], [address], 12/14/2022 14:09:22 12/13/19 23 12/12/2022 URINA LYSIS , WITH MICRO SCOPI C, REFLE X CULTU RE nitrite, urine Negati ve negati ve Not Available [facility] (Lab) [address] [facility], [place], [address], 12/14/2022 14:09:22 12/13/19 23 12/12/2022 URINA LYSIS , WITH MICRO SCOPI C, REFLE X CULTU RE leukocyte esterase, urine 500 goran/u L negati ve abnormal Not Available [facility] (Lab) [address] [facility], [place], [address], 12/14/2022 14:09:22 12/13/19 23 12/12/2022 URINA LYSIS , WITH MICRO SCOPI C, REFLE X CULTU RE urobilinogen , urine Normal mg/dL normal Not Available [facility] (Lab) [address] [facility], [place], [address], 12/14/2022 14:09:22 12/13/19 23 12/12/2022 URINA LYSIS , WITH MICRO SCOPI C, REFLE X CULTU RE RBC, urine TNTC /hpf none, 0-2 abnormal Not Available [facility] (Lab) [address] [facility], [place], [address], 12/14/2022 14:09:22 12/13/19 23 12/12/2022 URINA LYSIS , WITH MICRO SCOPI C, REFLE X CULTU RE WBC, urine TNTC /hpf none, 0-5 abnormal Not Available [facility] (Lab) [address] [facility], [place], [address], 12/14/2022 14:09:22 12/13/19 23 12/12/2022 URINA LYSIS , WITH MICRO SCOPI C, REFLE X CULTU RE squamous epithelial cells, urine Modera te /hpf none abnormal Not Available [facility] (Lab) [address] [facility], [place], [address], 12/14/2022 14:09:22 12/13/19 23 12/12/2022 URINA LYSIS , WITH MICRO SCOPI C, REFLE X CULTU RE bacteria, urine None /hpf none Not Available [facility] (Lab) [address] [facility], [place], [address], 12/14/2022 14:09:22 12/13/19 23 12/12/2022 URINA LYSIS , WITH MICRO SCOPI C, REFLE X CULTU RE hyaline cast, urine None /lpf none, 0-2 Not Available [facility] (Lab) [address] [facility], [place], [address], 12/14/2022 14:09:22 12/13/19 23 12/12/2022 URINA LYSIS , WITH MICRO SCOPI C, REFLE X CULTU RE mucus, urine TNTC /hpf none, trace, few abnormal Urine Cultu re to follo w. Not Available [facility] (Lab) [address] [facility], [place], [address], 12/14/2022 14:09:22 12/13/19 23 12/12/2022 CULTU RE: URINE result report SEE RESULT S BELOW Test: Cultu re: Urine Speci men Type: Urine Speci men Date: 2022 2:21 PM Resul t Date: 2022 1:06 PM Resul t Statu s: Final resul t Abnor mal: No Resul ting Lab: [facility] [address] [facility] [address] Tel: CULTU RE ----- ----- ----- --- Cultu re resul t (>=3 organ isms prese nt) indic ates possi ble conta minat ion. Repea t cultu re if sympt oms indic ate. Not Available [facility] (Lab) [address] [facility], [place], [address], 12/14/2022 14:09:23 12/13/19 23 12/12/2022 urina lysis , dipst ick Leukocytes ++ Not Available [place] [address] [place], [address], 12/12/2022 12:43:43 12/13/19 23 12/12/2022 urina lysis , dipst ick Nitrite + Not Available [place] [address], [place], [place], [address], 12/12/2022 12:43:43 12/13/19 23 12/12/2022 urina lysis , dipst ick pH 5 Not Available [facility] [address], [place], [address], 12/12/2022 12:43:43 12/13/19 23 12/12/2022 urina lysis , dipst ick Blood +++ Not Available [facility] [address], [place], [address], 12/12/2022 12:43:43 12/13/19 23 12/12/2022 urina lysis , dipst ick Specific [place] 1.030 Not Available [facility] [address], [place], [address], 12/12/2022 12:43:43 12/13/19 23 12/12/2022 urina lysis , dipst ick Glucose 250 Not Available [facility] [address], [place], [address], 12/12/2022 12:43:43 03/05/2003/05/2023 HEPAT ITIS B SURFA CE ANTIG EN hepatitis B surface antigen Non-re active non-re active This assay was perfo rmed using [employer] ratio n reage nts and test kits. Value s obtai ana with other assay metho ds or kits canno t be used inter gibbs eably . Not Available [facility] (Lab) [address], [place], [address], 03/06/2023 21:46:07 03/05/20 23 03/05/2023 HIV 1/2 ANTIG EN/AN TIBOD Y, REFLE X CONFI RMATI ON HIV antigen/anti body Nonrea ctive nonrea ctive HIV-1 antig en and HIV-1 /HIV- 2 antib odies were not detec geraldine. No labor atory evide nce of HIV infec tion. Not Available [facility] ([facility]) [address] [facility], [place], [address], 03/06/2023 21:46:08 03/05/20 23 03/05/2023 HEPAT ITIS C ANTIB ANU SCREE N, REFLE X TO CONFI RMATI ON hepatitis C antibody Non-re active non-re active Antib odies to HCV Not Detec geraldine, does not exclu de the possi bilit y of expos ure to HCV. Not Available [facility] ([facility]) [address] [facility], [place], [address], 03/06/2023 21:46:08 03/05/20 23 03/05/2023 RPR SCREE N/REF GEOVANNA TITER /FTA RPR screen Nonrea ctive nonrea ctive Not Available [facility] (Lab) [address] [place], [address], 03/06/2023 21:46:08 03/05/20 23 03/05/2023 HEPAT ITIS B CORE, IGM hepatitis B core IgM antibody Negati ve negati ve Not Available [facility] ([facility]) [address] [place], [address], 03/06/2023 21:46:09 Result Notes None recorded. Procedures Surgical History Date Name Laterality Status Provider Name and Address Organization Details Recorded Time 09/23/2021 Date of Last Pap Smear completed Kay Evans [place] - [facility] 12/12/2022 12:42:44 Imaging Results None recorded. Procedure Notes None recorded. Medical Equipment None Reported. Allergies No known drug allergies Medications Name Sig Start Date Stop Date Status Note LastModified by Organization Details LastModified Time doxycycline hyclate 100 mg capsule TAKE 1 CAPSULE BY MOUTH TWICE DAILY 03/05 completed Not Available Not Available Not Available fluconazole 150 mg tablet TAKE 1 TABLET BY MOUTH FOR 1 DAY 03/05 completed Not Available Not Available Not Available metronidazo le 500 mg tablet TAKE 1 TABLET BY MOUTH TWICE DAILY FOR 7 DAYS 03/05 completed Not Available Not Available Not Available ciprofloxac in 500 mg tablet TAKE 1 TABLET BY MOUTH TWICE DAILY 03/05 completed Not Available Not Available Not Available nystatin-tr iamcinolone 100,000 unit/gram-0 .1 % topical ointment APPLY TO THE AFFECTED AREA(S) BY TOPICAL ROUTE 2 TIMES PER DAY for 7 days. Apply to vulva 09/23 completed Not Available Not Available Not Available ofloxacin 0.3 % ear drops INSTILL 10 DROPS TO RIGHT EAR DAILY FOR 7 DAYS 03/05 completed Not Available Not Available Not Available doxycycline hyclate 100 mg tablet Take 1 tablet twice a day by oral route with meals for 14 days. active Not Available Not Available No t Available amoxicillin 875 mg-potassiu m clavulanate 125 mg tablet TAKE 1 TABLET BY MOUTH EVERY 12 HOURS 12/12 completed Not Available Not Available Not Available penicillin G benzathine 2,400,000 unit/4 mL intramuscul ar syringe supervisor wet pour from pharmacy and bring back to clinic for injection - Benzathin e penicilli n G 2.4 million units IM in a single dose 2022 active Not Available Not Available Not Avai lable nitrofurant oin monohydrate /macrocryst als 100 mg capsule TAKE 1 CAPSULE BY MOUTH EVERY 12 HOURS FOR 7 DAYS 03/05 completed Not Available Not Available Not Available drospirenon e 3 mg-ethinyl estradiol 0.02 mg tablet TAKE 1 TABLET BY MOUTH DAILY 03/05 completed Not Available Not Available Not Available Vitals Date Recorded Body height Body mass index (BMI) Body weight Systolic blood pressure Diastolic blood pressure Provider Name and Address Organization Details Last Updated DateTime 09/09/2021 160.66 cm 46.4 kg/m2 765099.6 7 g 122 mm[Hg] 82 mm[Hg] Anyi Tang [facility] 12:26:20 Date Recorded Body height Body mass index (BMI) Body weight Systolic blood pressure Diastolic blood pressure Provider Name and Address Organization Details Last Updated DateTime 09/23/2021 160.66 cm 46.9 kg/m2 007940.7 3 g 139 mm[Hg] 89 mm[Hg] Anyi Tang [facility] 2 14:24:46 Date Recorded Body height Body mass index (BMI) Body weight Systolic blood pressure Diastolic blood pressure Provider Name and Address Organization Details Last Updated DateTime 12/12/2022 160.66 cm 46.4 kg/m2 790947.3 9 g 126 mm[Hg] 83 mm[Hg] Kay Evans [facility] 3 12:42:05 Date Recorded Body height Body mass index (BMI) Body weight Systolic blood pressure Diastolic blood pressure Provider Name and Address Organization Details Last Updated DateTime 03/05/2023 160.66 cm 46.4 kg/m2 492741.3 9 g 120 mm[Hg] 85 mm[Hg] Jenny Ball [facility] 3 14:09:28 Social History Question Answer Notes LastModified by Organizat ion Details LastModified Time Tobacco Smoking Status Never Smoker Anyi Tang [facility], [facility] 09/09/2021 12:27:12 What Is Your Level Of Alcohol Consumption? Occasional Information not available 09/09/2021 Are You Blind Or Do You Have Difficulty Seeing? No Information n ot available 09/09/2021 In The 14 Days Before Symptom Onset, Have You Had Close Contact With A Laboratory-confirm ed COVID-19 While That Case Was Ill? No Information n ot available 12/12/2022 In The 14 Days Before Symptom Onset, Have You Had Close Contact With A Person Who Is Under Investigation For COVID-19 While That Person Was Ill? No Information not available 12/12/2022 Have You Been To An Area Known To Be High Risk For COVID-19? No Information not available 12/12/2022 Are You Deaf Or Do You Have Serious Difficulty Hearing? No Information not available 09/09/2021 What Type Of Diet Are You Following? REGULAR Information n ot available 09/09/2021 Sex: Unknown Functional Status Question Answer Note LastModified by Organizat ion Details LastModified Time Do you have difficulty walking or climbing stairs? No Information not available 09/09/2021 Are you able to walk? YESWOREST Information not available 09/09/2021 Are you able to care for yourself? Yes Information not available 09/09/2021 Do you have difficulty dressing or bathing? No Information not available 09/09/2021 What is your exercise level? None Information not available 09/09/2021 Mental Status None recorded. Family History Nothing Reported. Medical History Condition Response Other N Blood Transfusion N Dermatologic Disorders N Gestational Diabetes N Anxiety Disorder N Autoimmune disease N Arthritis N Polyps N Infertility N Acid Reflux (GERD) N Cancer N Varicosities N Stroke N Neurologic/Epilepsy N Fibromyalgia N Headaches N Kidney Disease N Heart Problems N Kidney or Bladder Problems N Eating Disorder N Art (IVF or FET) N Hepatitis/Liver Disease N No Past Medical History N Urinary Tract Infection N Asthma N Trauma/Violence N Thrombophilias N Allergies (Food, seasonal, environmental ) N Breast Cancer N Drug/Latex Allergies/Reactions N Lung Disease N Defects or Inherited Disease N Breast Problem N Hematologic disorders N Anesthesia Complications N History of STI N Deep Vein Thrombosis N Polycystic ovary syndrome N History of abnormal pap N Endometriosis N High Cholesterol N Thyroid Problems N GI Problems N Anemia N Psychiatric Illness N Ovarian Cancer N Diabetes N Pulmonary (TB, Asthma) N Eczema N Abuse/Domestic Violence N Depression/ depression N Heart Disease N Pre-Eclampsia N Hypertension N Osteoporosis N Gynecological History Statement/Question Response Abnormal Pap N Flow Heavy Date of LMP 03/01/2023 STIs/STDs N HPV Vaccine Y Duration of Flow (days) 5 Current Control Method None Sexually Active? Y Menses Monthly Y Age of first menstrual cycle 11 Date of Last Pap Smear 09/23/2021 Sexual Problems? N Desired Control Method None LMP Definite Obstetrics History GPAL:G 0 P 0 0 0 0 Past Encounters Encounter ID Performer Location Encounter Start Date Encounter Closed Date Diagnosis/Indication Diagnosis SNOMED-CT Code Diagnosis ICD10 Code Diagnosis Note [id number] ABDELRAHMAN Martin [address] [address] 09/09/2021 12:10:56 09/09/2021 13:11:28 Vaginitis 87807782 N76.0 Vulvar irritation /itching x 1-2 weeks. On exam vulvar irritation and discharge suspicious for yeast. No lesions or open areas noted. No signs of infection. LMP 08/22/2021, using condoms for control.Wi ll treat for yeast.Vagi nitis panel sent, Urine STI screening sentRTC for WWE in 2-3 weeks. She is due for her first pap. Will reassess vulva at that time. Time spent with the patient was 25 minutes [id number] ABDELRAHMAN Martin [facility] [address],[place] [address] 09/23/2021 14:19:21 09/23/2021 15:06:17 Gynecologic examination 07872995 Z01.419 Take Calcium with Vitamin D 1200mg daily if not receiving in daily diet. It is strongly advised to have an annual flu shot and up can obtain at most pharmacies . If you have not had a TDap shot in the last 10 years you should obtain one as well. Discussed with patient & provided with informatio n regarding Gardisil vaccine to prevent the 4 strains for HPV that cause cervical cancer if under age 26. Encourage safe sexual practices, to use condoms and limit partners if not already in a monogamous relationsh ip. Do monthly self breast exams. Have mammogram yearly or every other year depending on family history. BRCA testing is now available for patients with strong genetic history of female cancer. If interested contact the office. Engage in daily exercise of low impact aerobic exercise 45-60 minutes 4-5 times weekly. Avoid tobacco and illicit drugs as well as using moderation with alcohol intake less than 1-2 8 oz beverages daily. This lifestyle behavior pattern will lead to less health conditions and longer life span. If BMI greater than 25 weight watchers or dietary consult advised. Patient received above instructio ns, and questions have been answered. If you have any questions please call or respond to this email. Patient was made aware of the patient portal and may obtain a paper copy of today's plan if desired. WWE, no gynecologi c issuesUsin g condoms, does not desire another method of controlFir st pap done todaySTI testing declinedNo family hx of breast or ovarian cancerBP today 139/89, she does not have a PCP. She will check with her insurance and call to establish care with one.RTC in one year for WWE or sooner if needed [id number] [facility] [address] [address] 12/12/2022 12:25:43 12/12/2022 12:55:51 Urinary symptoms 207976892 R39.9 Suspect UTIUrine culture sentMedica tion sent Counseled on medication R/B's, Most common side effects, & use. All questions were answered to patient satisfacti on. Time spent in visit is a total of 15 mins with at least 50% of visit consisting of counseling and review of plan of care. Adult heal th examination 438532031 Z00.00 Requested adult panel to also specifical ly check hgba1c due to glucose of 250 on urine dip.Agreea ble to this plan of care. [id number] Heather Walsh [facility] [address] [address] 03/05/2023 13:58:17 03/05/2023 14:58:55 Exposure to Treponema pallidum 548675162 Z20.2 gc/ct/tric h urine testing sentblood STI panel orderedrec ommended she be treated presumptiv moises for syphilis given recent exposure per CDC guidelines rx sent for pen G, sisal picker at pharmacy and RTC for administra jenn diaz from IC until all partners treated, and its been 10 days since treatment for allsafe sexual practices discussed and encouraged Time spent in visit is a total of 30 mins with at least 50% of visit consisting of counseling and review of plan of care. Venereal d isease screening 310724031 Z11.3 Sexually t ransmitted infectious disease 8919269 A64 Health Concerns Section Related Observation LastModified by Organization Detai ls LastModified Time None Recorded Concern Status LastModified by Organization Details LastModified Time None Recorded Advance Directives Directive None Recorded Payers Encounter Date Sequence Insurance Name Policy Number Policy Jarquin Covered Member ID Jarquin Member ID Guarantor Name 09/09/2021 1 [facility] ON OR AFTER 11/22/20 (MEDICAID REPLACEMENT - HMO) Evelyn Arroyo [id number] Evelyn Arroyo 09/23/2021 1 [facility] ON OR AFTER 11/22/20 (MEDICAID REPLACEMENT - HMO) Evelyn Arroyo [id number] Evelyn Arroyo 12/12/2022 1 [facility] ON OR AFTER 11/22/20 (MEDICAID REPLACEMENT - HMO) Evelyn Arroyo [id number] Evelyn Arroyo 03/05/2023 1 [facility] ON OR AFTER 11/22/20 (MEDICAID REPLACEMENT - HMO) Evelyn Arroyo [id number] Evelyn Arroyo Notes Date Note Type Note Provider Name and Address Organization Details Recorded Time 09/09/2021 text/html Patient noticed vulvar itching/irritation /bump 1-2 weeks ago.Symptoms were worse a week ago, improving now.Still has some itching.Denies any open lesions, vaginal discharge, pain, fevers. ABDELRAHMAN Martin [address], [place], [address], [facility] 09/09/2021 13:05:25 09/23/2021 text/html Annual GYNReport ed bypatient.Menstrua l cycle:Normal menses Urinary symptoms:No hematuria; No incontinence Vulva:No genital lesion Vagina:Normal vaginal discharge Breast:No breast pain; No breast lump; No nipple discharge Current Contraception:Sati sfied with current contraception; Monogamous relationship; Condoms Sexual complaints:No sexual complaints; No pain during intercourse; Normal libido Menopausal Symptoms:No menopausal symptoms; Normal vaginal lubrication Psychological symptoms:No depression; No anxiety; No PMDD Preventive measures:Encourage self breast examination; Encourage regular exercise; Encourage no tobacco use; Encourage regular mammograms starting age 40 ABDELRAHMAN Martin [address], [place], [address], [facility] 09/23/2021 15:04:13 12/12/2022 text/html Here today with symptoms of urinary urgency, frequency, & dysuria. Neg pain of abd/pelvis/flankNe g GI sx'sNeg N/V/F/C/DNeg Vag d/c, odor, irritation, itching ABDELRAHMAN [facility] [address], [place], [address], [facility] 12/12/2022 12:55:24 03/05/2023 text/html 22yopresents for STI testingher partner was diagnosed and treated for syphilis 1 week agoshe denies any symptoms (neg discharge, itching, odors, irritation, or sores/lesions present)neg n/v/fneg flu-like symptomsshe is currently on her periodshe denies any medication allergies ABDELRAHMAN Martin [address], [place], [address], [facility] 03/05/2023 14:47:57 OBGyn Episode No OBEpisode recorded.
--- OUTSIDE RECORDS SUMMARY | 2024-08-24 16:44 | XMS_ITS ---
Author Organization [facility]ly [facility] Address [address] [place] [address] Care Team Providers Care Human Services Manager Name Role Phone Keven Krishna Primary Care Provider REASON FOR VISIT MAR f/u Encounters Encounter Location Date Provider Diagnosis [place] [address] [place] [address] 08/17/2024 Keven Krishna Plan Of Treatment No Information Progress Notes * Evelyn LANEDOB:[birth year] (23 yo F)Acc No.[id number]:08/17/2024 UNLOCKED PROGRESS NOTE Patient: Evelyn GARDNER Provider: CYNTHIA Rose, CONTINUOUS DRIER HELPER, MIXING MACHINE TENDER-C :2000 A ge:23 Y S ex:Female Date:08/17/2024 Phone: Address:[address] [place], [place] [id number] Subjective: * Chief Complaints: * 1 . MAR f/u. * Medical History: Objective: * Vitals: Assessment: Plan: * Treatment: * Care Plan Details* * Electronic signature of Esperanza Krishna APRN, [id number] on 08/24/2024 at 04:43 PM CDT Sign off status: Pending * Provider: Johnny Krishna MSN, CONTINUOUS DRIER HELPER, MIXING MACHINE TENDER-C Date: 0 08/17/2024 Generated for Quentin rodriguez/Ousmane/eTransmitting on: 0 08/24/2024 04:43 PM CDT
--- OUTSIDE RECORDS SUMMARY | 2024-08-24 16:44 | XMS_ITS ---
Author Organization [facility] Address [address] [place] [address] Care Team Providers Care Motel Manager Name Role Phone KhanhjessicaleaSheriflora Primary Care Provider Allergies No Known Allergies Results Component Value Reference Range Notes 12 Panel Urine Drug Screen Reviewed date:08/10/2024 02:18:54 PM Interpretation: Performing Lab: Notes/Report: THC po TESS neg MOP (OPI) neg AMP neg MET neg BAR neg BZO neg MDMA neg MTD neg OXY neg PCP neg BUP neg REASON FOR VISIT mat new, last use 08/08/2024, fentanyl, wants to discuss options Medications Medication SIG (Take, Route, Frequency, Duration) Notes Start Date End Date Status Buprenorphine HCl-Naloxone HCl 4-1 MG 1 film under the tongue and allow to dissolve Sublingual three times per day 08/10/2024 Active Social History Tobacco Use: Social History Observation Description Date Details (start date - stop date) Current some da y smoker 04/25/2024 - NA Tobacco Control (Standard) Question Answer Notes Tobacco use: Current some day smoker When did you start smoking? 04/25/2024 Additional Findings: Tobacco user e-cigarette Problems Problem Type SNOMED Code ICD Code Onset Dates Problem Status W/U Status Risk Notes Problem Mental disorder caused by drug (588507071) Opioid use disorder (F11.99) Active confirmed Problem Tobacco user (518786389) Nicotine dependence, unspecified, uncomplicated (F17.200) Active confirmed Problem Obesity (596354870) Obesity (E66.9) Active confirmed Vital Signs Weight 249 lbs 08/10/2024 BMI 42.74 kg/m2 08/10/2024 Blood pressure systolic 120 mm Hg 08/11/19 25 Blood pressure diastolic 78 mm Hg 03/19/2 025 Heart Rate 108 /min 08/10/2024 Oximetry 98 % 08/10/2024 Respiratory Rate 16 /min 08/10/2024 Height 5 ft 4 in in 08/10/2024 Encounters Encounter Location Date Provider Diagnosis [facility] [address] [facility] [place] [address] 08/10/2024 Keven Krishna Opioid use disorder F11.99 ; Nutritional counseling Z71.3 ; Nicotine dependence, unspecified, uncomplicated F17.200 and Obesity E66.9 Assessments Encounter Date Diagnosis (ICD Code) Assessment Notes Treatment Notes Treatment Clinical Notes Section Notes 08/10/2024 Opioid use disorder (ICD-10 - F11.99) Client will complete home induction. Provided with home induction instruction sheet and encouraged to call office with any questions or concerns. 08/10/2024 Nutritional counseling (ICD-10 - Z71.3) 08/10/2024 Nicotine dependence, unspecified, uncomplicated (ICD-10 - F17.200) 08/10/2024 Obesity (ICD-10 - E66.9) 08/10/2024 Other Discussed medication side effects, adverse effects, risks, benefits, as well as interactions. Encouraged non-use of opioids. Has naloxone. Recommended participation in recovery groups and/or counseling services. May contact office with questions or concerns. Plan Of Treatment Medication Medication Name Sig Start Date Stop Date Notes Buprenorphine HCl-Naloxone H Cl 4-1 MG 1 film under the tongue and allow to dissolve Sublingual three times per day 08/10/2024 Treatment Notes Assessment Notes Opioid use disorder Client will complete home induction. Provided with home induction instruction sheet and encouraged to call office with any questions or concerns. Other Discussed medication side effects, adverse effects, risks, benefits, as well as interactions. Encouraged non-use of opioids. Has naloxone. Recommended participation in recovery groups and/or counseling services. May contact office with questions or concerns. Next Appt Details Follow Up: 1 Week, Reason: M AR f/u Progress Notes * ARIANA EvelynDOB:[birth year] (23 yo F)Acc No.[id number]:08/10/2024 Patient: Evelyn GARDNER Provider: Johnny Krishna, MSN, ARC AND G[employer] WELDER, BOILER FIREMAN-C :2000 A ge:23 Y S ex:Female Date:08/10/2024 Phone: Address:[address] [place] [address] ANA LUISA NAPIER-[id number] Subjective: * Chief Complaints: * M at new, last use 08/08/2024, fentanyl, wants to discuss options * HPI: I nterim History: Emergency room visit N o. Was hospitalized N o. D epression Screening: PHQ-9 L ittle interest or pleasure in doing things?Several days F eeling down, depressed, or hopeless S everal days T rouble falling or staying asleep, or sleeping too much S everal F eeling tired or having little energy S everal P oor appetite or overeating M ore than half the days F eeling bad about yourself or that you are a failure, or have let yourself or your family down S ever T rouble concentrating on things, such as reading the newspaper or watching television S ever M oving or speaking so slowly that other people could have noticed; or the opposite, being so fidgety or restless that you have been moving around a lot more than usual S ever T houghts that you would be better off or of hurting yourself in some way N ot at all T otal Score 9 I nterpretation M ild Depression S creening: Monroe Suicide Severity Rating Scale (LF) D o you want to initiate with S creener form I nterpretation: L ow Risk 6 . Suicide Behavior Question: Have you ever done anything,started to do anything, or prepared to end your life? N o 2 . Suicidal Thoughts: Have you actually had any thoughts of killing yourself? N o 1 . Wish to be : Have you wished you were or wished you could go to sleep and not wake up? N o C SSRS Interpretation and Follow Up Plan: CSSRS Interpretation and Follow Up Plan C SSRS Screen documented using SF Y es R isk Disposition from SF L ow - No Follow Up Plan Required F ollow Up Plan N o Follow Up Plan required at this time. D epression Screening PHQ9: c/o PHQ-2 (2015 Edition). PHQ9 D epression Screening Finding P ositive F ollow-up Depression P atient refused intervention M AR Initial Assessment: Evelyn presents for MAR services. Drug of choice: fentanyl - reports use started in August of 2023 and trigger was being around her significant other who was also using. Reports taking at least 1 capsule per day, but reports amount of use varied with whom she was around. Last use on 08/09/2024 at 6pm and reports using intranasally. Reports no non-fatal overdoses in the past. This is her first time seeking MAR services. Substance use history S ubstance Use History, drugs of choice: O THER (specify): fentanyl Addiction Treatment History P rior Medications for TRONCOSO treatment N one. First time seeking treatment. T herapy/counseling and Recovery support (peers/groups) N o history of therapy/counseling or engagement with recovery support peer/groups. Therapy/counseling and recovery support discussed and encouraged. Referrals placed. History of Infectious Diseases H istory of viral hepatitis N o H istory of HIV N o H istory of TB N o H istory of other infectious diseases N o History of IV drug use and related infections H istory of injection drug use? N o Acute Trauma A cute Trauma N o Psychiatric History H istory of psychiatric diagnoses? N o Primary Care H as a primary care provider? N o I nterested in primary care services at this time? N o. Assessment and history specific to females F emale/Female at ? Y es P regnancy testing: N egative. Rapid test completed in office and is negative. C ontraception: U ses contraception. Hepatitis A and B vaccination status V accination status Hep A D enies vaccination to Hep A. Vaccination encouraged and resources offered. V accination status, Hep B R eports vaccination for Hep B Housing Stability and Employment I s housing stable/safe? Y es C urrently employed? U nemployed. Support System: H as a support system: Y es (specify): Narcan Access H as Narcan and has been trained on its use??Yes. Prescription Drug Monitoring Program P rescription Drug Monitoring Program reviewed? Y es. No concerns identified. * ROS: B asic ROS: Denies Blair vega. S murali Admits. D enies C onstipation. D enies S uicidal Thoughts. * Medical History: * Surgical History: D endanica Past Surgical History * Hospitalization/Major Diagno stic Procedure: D endanica Past Hospitalization * Family History: F ather: alive. M other: alive. 2 sister(s) - healthy. . * Social History: P rimary Social History: L iving Arrangement L iving Arrangement: D ependent Living L iving with: P arent(s) I s this a supportive environment? 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 1 06/26/2023 A dditional Findings: Tobacco user e -cigarette M iscellaneous: M ethod of learning P referred method of learning: R eading,Discussion,Demonstration,Hearing * Medications: N one * Allergies: N .K.D.A.no[Allergies Verified] Objective: * Vitals: I nitials:st, Wt:249, Ht:5 ft 4 in, BMI:42.74, BP:120/78, HR:108, Oxygen sat %:98, RR:16, LMP:07/2024, Pain scale:0. * Examination: A AMY Physical Assessment: Intoxication and Withdrawal signs I ntoxication signs N o signs of intoxication are present during examination. W ithdrawal Signs R estlessness, irritability, anxiety., Sweating . G eneral Examination: GENERAL APPEARANCE: i n no acute distress. HEART: r egular rate and rhythm. LUNGS: r espirations regular and easy. NEUROLOGIC: g ait normal, no tremor, tic or rigidity. PSYCH: a lert, oriented x4, anxious appearing, good eye contact, full range of affect/positive mood, thought process logical, goal directed. ? Assessment: * Assessment: 1. N utritional counseling - Z71.3 2 . O pioid use disorder - F11.99 (Primary) 3 . N icotine dependence, unspecified, uncomplicated - F17.200 ?4. O besity - E66.9 Plan: * Treatment: Value Reference Range T HC po * C OC neg * M OP (OPI) neg * A MP neg * M ET neg * B AR neg * B ZO neg * M DMA neg * M TD neg * O XY neg * P CP neg * B UP neg Notes: Client will complete home induction. Provided with home induction instruction sheet and encouraged to call office with any questions or concerns.??2.?Others? Notes: Discussed medication side effects, adverse effects, risks, benefits, as well as interactions. Encouraged non-use of opioids. Has naloxone. Recommended participation in recovery groups and/or counseling services. May contact office with questions or concerns.?? * Procedure Codes: 3 008F BODY MASS INDEX [id number] BEHAV CHNG SMOKING 3-10 [id number] SPECIMEN [id number] MEDICAL NUTRITION, INDIV, [id number] SELF-MGMT EDUC & TRAIN, 1 PT * Preventive Medicine: Counseling: S MOKING: Patient counselled on the dangers of tobacco use and urged to quit. . C are goal follow-up plan: BMI management provided Y es Above Normal BMI Follow-up L ifestyle education regarding diet * Follow Up: 1 Week (Reason: JUL f/u) * * Sign off status: Completed true * Provider: Johnny Krishna, MSN, [employer] AND G[employer] WELDER, BOILER FIREMAN-C Date: 0 08/10/2024 Generated for Quentin rodriguez/Ousmane/Camilleitting on: 0 08/24/2024 04:43 PM CDT History and Physical Notes * HPI (History of Present Illness) Category Sub-Category Detail Notes Category Not es Interim History Was hospitalized No Emergency room visit No Depression Screening PHQ9 PHQ9 Depression Screening Finding: Positive Follow-up Depression: Patient refused in tervention Depression Screening PHQ-9 Little inte rest or pleasure in doing things: Several days Feeling down, depressed, or hopeless: Se veral days Trouble falling or staying asleep, or sl eeping too much: Several days Feeling tired or having little energy: S everal days Poor appetite or overeating: More than h correction the days Feeling bad about yourself o r that you are a failure, or have let yourself or your family down: Several days Trouble concentrating on thi ngs, such as reading the newspaper or watching television: Several days Moving or speaking so slowly that other people could have noticed; or the opposite, being so fidgety or restless that you have been moving around a lot more than usual: Several days Thoughts that you would be b marty off or of hurting yourself in some way: Not at all Total Score: 9 Interpretation: Mild Depression Screening [place] Suicide Sev erity Rating Scale (LF) Do you want to initiate with: Screener form Interpretation:: Low Risk 6. Suicide Behavior Question: Have you ever done anything,started to do anything, or prepared to end your life?: No 2. Suicidal Thoughts: Have you actually had any thoughts of killing yourself?: No 1. Wish to be : Have you wished you were or wished you could go to sleep and not wake up?: No MAR Initial Assessment History of Infect ious Diseases History of viral hepatitis: No History of HIV: No History of TB: No History of other infectious diseases: No Acute Trauma Acute Trauma: No History of IV drug use and r elated infections History of injection drug use?: No Psychiatric History History of psychiatric diagn oses?: No Substance use history Substance Use Hist ory, drugs of choice:: OTHER (specify): fentanyl Addiction Treatment History Prior Medica tions for TRONCOSO treatment: None. First time seeking treatment. Therapy/counseling and Recov john support (peers/groups): No history of therapy/counseling or engagement with recovery support peer/groups. Therapy/counseling and recovery support discussed and encouraged. Referrals placed. Primary Care Has a primary care provider?: No Interested in primary care services at this time?: No. Assessment and history specific to females Femal e/Female at ?: Yes testing:: Negative. Rapid test completed in office and is negative. Contraception:: Uses contraception. Hepatitis A and B vaccination status Vac cination status Hep A: Denies vaccination to Hep A. Vaccination encouraged and resources offered. Vaccination status, Hep B: Reports vacci nation for Hep B Housing Stability and Employment Is housing stab le/safe?: Yes Currently employed?: Unemployed. Support System: Has a support system:: Yes (spec lynda): Narcan Access Has Narcan and has b een trained on its use?: Yes. Prescription Drug Monitoring Program Pre scription Drug Monitoring Program reviewed?: Yes. No concerns identified. CSSRS Interpretation and Follow Up Plan CSSRS Interpretation and Follow Up Plan CSSRS Screen documented using SF: Yes Risk Disposition from SF: Low - No Follo w Up Plan Required Follow Up Plan: No Follow Up Plan requir ed at this time. Examination Category Sub-Category Detail Notes Category Not es General Examination GENERAL APPEARANCE: in no acute di stress HEART: regular rate and rhy thm LUNGS: respirations regular and easy NEUROLOGIC: gait normal, no trem or, tic or rigidity PSYCH: alert, oriented x4, anxious appearing, good eye contact, full range of affect/positive mood, thought process logical, goal directed ASAM Physical Assessment Intoxication an d Withdrawal signs Intoxication signs: No signs of intoxication are present during examination. . Withdrawal Signs: Restlessness, irritabi lity, anxiety., Sweating
--- OUTSIDE RECORDS SUMMARY | 2024-08-24 16:44 | XMS_ITS | Patient Health Record ---
Author Organization [facility] Address [address] [place] [address] Care Team Providers Care Drainage Inspector Name Role Phone Keven Krishna Primary Care Provider [phone] Allergies No Known Allergies Results Component Value Reference Range Notes 12 Panel Urine Drug Screen Reviewed date:08/10/2024 02:18:54 PM Interpretation: Performing Lab: Notes/Report: THC po TESS neg MOP (OPI) neg AMP neg MET neg BAR neg BZO neg MDMA neg MTD neg OXY neg PCP neg BUP neg Reason For Referral No Information Medications Medication SIG (Take, Route, Frequency, Duration) [...] Problem Status W/U Status Risk Notes Problem Tobacco user (692835288) Nicotine dependence, unspecified, uncomplicated (F17.200) Active confirmed Problem Obesity (024816923) Obesity (E66.9) Active confirmed Problem Mental disorder caused by drug (703333755) Opioid use disorder (F11.99) Active confirmed Vital Signs Heart Rate 108 /min 08/10/2024 Respiratory Rate 16 /min 08/10/2024 Blood pressure diastolic 78 mm Hg 08/10/2024 Oximetry 98 % 08/10/2024 Height 5 ft 4 in in 08/10/2024 Blood pressure systolic 120 mm Hg 08/10/2024 Weight 249 lbs 08/10/2024 BMI 42.74 kg/m2 08/10/2024 Encounters Encounter Location Date Provider Diagnosis [facility] [address] [place] [address] 08/10/2024 Keven Krishna Opioid use disorder F11.99 ; Nutritional counseling Z71.3 ; Nicotine dependence, unspecified, uncomplicated F17.200 and Obesity E66.9 Assessments Encounter Date Diagnosis (ICD Code) Assessment Notes Treatment Notes Treatment Clinical Notes Section Notes 08/10/2024 Nutritional counseling (ICD-10 - Z71.3) 08/10/2024 Opioid use disorder (ICD-10 - F11.99) Client will complete home induction. Provided with home induction instruction sheet and encouraged to call office with any questions or concerns. 08/10/2024 Nicotine dependence, unspecified, uncomplicated (ICD-10 - F17.200) 08/10/2024 Obesity (ICD-10 - E66.9) 08/10/2024 Other Discussed medication side effects, adverse effects, risks, benefits, as well as interactions. Encouraged non-use of opioids. Has naloxone. Recommended participation in recovery groups and/or counseling services. May contact office with questions or concerns. Plan Of Treatment No Information Insurance Providers Payer Name Payer Address Payer Phone Subscriber Number Group Number Insured Name Patient Relationship to Insured Coverage Start Date Coverage End Date [facility] Att Claims Department [address] [place] [address] [id number] Evelyn Arroyo Self - patient is the insured Medical (General) History Surgical History Surgery Date(Month/Year) Hospitalization History Reason Date(Month/Year)
== END 2024-08-24 16:40 | disposition home or self-care (01) ==
PROVIDERS: Emergency Provider Nurse Practitioner Family
DX: N39.0 Urinary tract infection, site not specified (principal)
CPT/HCPCS: 81003; 87086; 99213; G0463

== ENCOUNTER 2024-11-14 13:56 | Emergency (ER) | payer MEDICAID, SELFPAY ==
--- NOTE | 2024-11-14 14:01 | ED_ITS ---
HPI - Wound/Laceration General Stated Complaint: stitches removed (forehead) Time Seen by Provider: 11/14/24 14:15 Source: patient and RN notes reviewed Mode of arrival: ambulatory Limitations: no limitations History of Present Illness HPI narrative: 24-year-old female presents with concern for suture removal. Reports she had 15 sutures placed in her forehead 6 days ago. She reports cleaning it made her squeamish so she just cleaned it mildly with a Q-tip. Related Data Home Medications ?Medication ?Instructions ?Recorded ?Confirmed ?Last Taken ?Type drospirenone 3 mg-ethinyl tablet 08/24/24 Unknown History estradiol 0.02 mg tablet cephalexin 500 mg capsule mg 11/14/24 Unknown History Allergies Allergy/AdvReac Type Severity Reaction Status Date / Time No Known Allergies Allergy Verified 08/24/24 16:09 Review of Systems Review of Systems: CONSTITUTIONAL: Denies malaise, chills, sweats, or fever. SKIN: Reports healing laceration to the forehead without purulent drainage MUSCULOSKELETAL: Denies muscle skeletal pain NEUROLOGIC: Denies numbness, weakness All systems reviewed & are unremarkable except as noted in HPI and below PMFSH Past Medical History Medical History No pertinent past medical history Surgical History Surgical History No pertinent past surgical history Family History Family History Mother Family history non-contributory Social History Social History Smoking status: Never smoker Substance use: current Substance use type: marijuana Gender identity (if verbalized by the patient): Female Sexual Orientation (if Verbalized by the Patient): Straight or Heterosexual Spiritual care concerns: No Comments At time of signature, agree with nursing past medical, surgical, social and family history. There is no relevant family history pertinent to the presenting complaint Exam Narrative: GENERAL: Well-appearing, well-nourished, and in no acute distress. HEAD: Normocephalic, atraumatic. EYES: PERRLA, conjunctivae clear, and EOMI. ENT: Mucous membranes moist. NECK: Supple. No lymphadenopathy CHEST: Clear to auscultation. No respiratory distress. HEART: Regular rate and rhythm. SKIN: Warm, dry. Healed laceration approximately 5 cm long noted to the forehead with intact sutures and scabbing without current drainage NEURO: Alert and oriented x3. PSYCH: Normal mood and affect Course Course Emergency Course: Patient is aware of diagnosis, understands and agrees to treatment plan. Anti cipatory guidance given. Patient agrees to follow-up as directed and is aware of reasons to seek care at the emergency department. Portions of this record may have been created with voice recognition software Level of Care: Express Care Visit Vital Signs Vital signs: Reviewed. MDM - Wound/Laceration MDM Narrative Medical decision making narrative: Verbal consent was obtained. Wound heavily scabbed. Scab had to be debrided in 15 simple interrupted completely removed in a sterile fashion. The proximal portion of the wound is not well approximated and after debriding scab has a small amount of drainage. Will place Steri-Strip in that area of the wound. Anticipatory guidance given. Patient tolerated procedure well, no complications. Patient advised to look for and return for any signs of infection such as redness, swelling, discharge, or worsening pain. Differential Diagnosis Differential diagnosis: Likely laceration, abrasion and avulsion of skin Critical Care Time Critical Care Time Critical Care Time: No Discharge Plan Discharge Clinical Impression: Visit for suture removal Patient Disposition: Home Condition: Stable Instructions: Stitches Removal (ED) Additional Instructions: AFTER the stitches are removed: Clean your wound as directed. Carefully wash your wound with soap and water. Pat the area dry with a clean towel. Protect your wound. Your wound can swell, bleed, or split open if it is stretched or bumped. You may need to wear a bandage that supports your wound until it is completely healed. How to minimize a scar: After sutures are removed, keep your scar out of the sun. Use sunblock if your wound is exposed to the sun. You may use OTC silicone pad and/or scar massage with ointment (for 10-15 min a day) after one month. Talk to your doctor if you think you are developing a keloid. Patient Language: Comoran Prescriptions: No Action drospirenone-ethinyl estradiol 3-0.02 mg tablet nitrofurantoin monohyd/m-cryst [Macrobid] 100 mg capsule 100 mg PO Q12H 5 Days Qty: 10 0RF Rx Instructions: must administer with a meal/food Follow-up/Referrals: PHYSICIAN,COMPLIANCE AUDITOR [Primary Care Provider] - Time of Disposition: 14:28
[2024-11-14 14:08] VITALS: BP 119/63; PULSE 95; RESP 16; TEMP 36.6; O2SAT 99
== END 2024-11-14 14:52 | disposition home or self-care (01) ==
PROVIDERS: Emergency Provider Nurse Practitioner
DX: S01.81XD Laceration without foreign body of other part of head, subsequent encounter (principal); X58.XXXD Exposure to other specified factors, subsequent encounter
CPT/HCPCS: 99211; G0463

== ENCOUNTER 2025-04-27 14:25 | Emergency (ER) | payer BC, SELFPAY ==
[2025-04-27 14:30] VITALS: BP 124/79; PULSE 89; RESP 20; TEMP 37.4; O2SAT 96
--- NOTE | 2025-04-27 15:10 | ED_ITS ---
HPI - Female Genitourinary General Chief complaint: Urogenital-Female Stated complaint: uti Time Seen by Provider: 04/27/25 15:10 Source: patient, RN notes reviewed and old records reviewed Mode of arrival: ambulatory Limitations: no limitations History of Present Illness HPI Narrative: 24-year-old female presents to the [facility] with 1 day history of frequency, urgency, low back pain. Last menstrual period was 19 April. Onset (ago): day(s) (1) Related Data Allergies Allergy/AdvReac Type Severity Reaction Status Date / Time No Known Allergies Allergy Verified 04/27/25 14:35 Review of Systems Review of Systems: All systems reviewed & are unremarkable except as noted in HPI and below Constitutional: Constitutional: Reports no additional constitutional complaints ENT: Reports system reviewed and no additional complaints, except as documented Cardiovascular: Cardiovascular: Reports no additional cardiovascular complaints, Denies chest pain and Denies dyspnea Respiratory: Respiratory: Reports no additional respiratory complaints, Denies chest congestion, Denies cough and Denies dyspnea Gastrointestinal: Gastrointestinal: Reports no additional gastrointestinal complaints Genitourinary: Genitourinary: Reports as per HPI Musculoskeletal: Musculoskeletal: Reports no additional musculoskeletal complaints Integumentary/Breasts: Skin/Breast: Reports system reviewed and no additional complaints, except as docu PMFSH Past Medical History Medical History No pertinent past medical history Surgical History Surgical History No pertinent past surgical history Family History Family History Mother Family history non-contributory Social History Social History Smoking status: Never smoker Substance use: current Substance use type: marijuana Gender identity (if verbalized by the patient): Female Sexual Orientation (if Verbalized by the Patient): Straight or Heterosexual Spiritual care concerns: No Comments At the time of my signature, I reviewed and agree with the nursing past medical, surgical, social, and family history. There is no relevant family history pertinent to the patient complaint. Exam Const: General: cooperative, healthy appearing, comfortable, no acute distress, well developed, alert and well nourished Nutritional Appearance: well nourished Orientation/consciousness: patient oriented x3 Limitations: no limitations HENMT: Head: normal to inspection Eyes: General: appearance normal, both eyes and all related structures Alignment and Position: alignment normal Neck: Neck: normal visual inspection, full ROM, no lymphadenopathy and no meningeal signs Chest: Chest palpation & inspection: normal inspection of the chest Resp: Effort & Inspection: normal respiratory effort and able to speak in complete sentences Auscultation: clear to auscultation bilaterally, no crackles, no rales, no rhonchi and no wheezes Cardio: Rate: regular rate GI: GI Palp: No abdominal tenderness : General: Yes no CVA tenderness Skin: General skin exam: normal color and no rashes or lesions noted Neuro: General: patient oriented x3, gait normal, moves all extremities and no meningeal signs Cognition (Neuro): normal cognition Speech: normal speech Gait exam (Neuro): Normal gait present Extrem: General: normal to inspection, full ROM, capillary refill normal and normal gait Psych: Appearance: grossly normal and well kempt Mental Status: mental status grossly normal Speech and movement: Normal speech and movement present and Clear speech present Affect: normal affect Attitude: cooperative Course Course Level of Care: Express Care Visit Vital Signs Vital signs: Vital Signs Temperature 99.3 F 04/27/25 14:30 Pulse Rate 89 04/27/25 14:30 Respiratory Rate 20 04/27/25 14:30 Blood Pressure 124/79 04/27/25 14:30 Pulse Oximetry 96 04/27/25 14:30 Oxygen Delivery Room Air 04/27/25 14:30 Temperature 99.3 F 04/27/25 14:30 Pulse Rate 89 04/27/25 14:30 Respiratory Rate 20 04/27/25 14:30 Blood Pressure 124/79 04/27/25 14:30 Pulse Oximetry 96 04/27/25 14:30 Oxygen Delivery Room Air 04/27/25 14:30 Reviewed MDM MDM Narrative Medical decision making narrative: patient sitting in exam room. Patient is nontoxic, vitals stable. Patient presents with UTI symptoms. Patient is appropriate for outpatient treatment with close follow-up Discharge instructions reviewed with patient, as well as provided in writing per nursing staff. The instructions also include specific and strict return/GO TO THE ER as well as f/u information. All questions have been answered, and the patient deny any further questions with discharge and discharge plan. Some parts of this dictation were generated by voice recognition software and may contain typographical and/or grammatical inaccuracies. Differential Diagnosis Differential Diagnosis: Differential diagnostic considerations for female urogenital? issues include urinary tract infection, bacterial vaginosis, cervicitis, ovarian cyst, vaginitis, STI exposure, ovarian torsion, ectopic , cyst of Bartholin?s gland, cystitis, dysmenorrhea.?? Lab Data Labs: Lab Results 04/27/25 Range/Units 15:00 POC Urine Color Yellow POC Urine Clarity Cloudy POC Urine pH 6.0 POC Ur Specif [place] 1.030 POC Urine Protein 1+ (Negative) POC Ur Glucose (UA) Negative (Negative) POC Urine Ketones Trace (Negative) POC Urine Blood Trace (Negative) POC Urine Nitrite Negative (Negative) POC Urine Bilirubin 2+ (Negative) POC Urine Urobilinogen 0.2 POC U Leukocyte Esteras Negative (Negative) reviewed Critical Care Time Critical Care Time Critical Care Time: No Discharge Plan Discharge Clinical Impression: Dysuria Patient Disposition: Home Condition: Stable Instructions: Antibiotic Form, Dysuria (ED) Additional Instructions: Increased water intake Take Tylenol as needed for pain Take antibiotic as prescribed You have been prescribed an antibiotic. Your urine will be sent to our lab for a culture. If at that time a bacteria grows that is not covered by the antibiotic prescribed you will be notified. Follow-up with primary care For new or worsening symptoms go directly to the emergency room Patient Language: Wolof Prescriptions: New cephalexin 500 mg capsule 500 mg PO Q12H Qty: 10 0RF Follow-up/Referrals: PHYSICIAN,ANSWERING SERVICE TELEPHONE OPERATOR [Primary Care Provider, Internal Medicine] Stand Alone Forms: Work/School Release IP Time of Disposition: 15:45
[2025-04-27 15:23] LABS: EDUAAPPEAR Cloudy; EDUABILI 2+ (Negative); EDUABLOOD Trace (Negative); EDUACOLOR1 Yellow; EDUAGLUCOSE Negative (Negative); EDUAKETONE Trace (Negative); EDUALEUKO Negative (Negative); EDUANITRATE Negative (Negative); EDUAPH 6.0; EDUAPROTEIN 1+ (Negative); EDUASPGRAVITY 1.030; EDUAUROBILI 0.2
== END 2025-04-27 15:48 | disposition home or self-care (01) ==
PROVIDERS: Emergency Provider Nurse Practitioner
DX: R30.0 Dysuria (principal)
CPT/HCPCS: 81003; 87086; 99213; G0463